=== PATIENT | male | born 1935 | race Caucasian/White ===

== ENCOUNTER → 2020-12-26 12:41 | Outpatient (CLI) | payer MEDICARE, SELFPAY ==
[2020-12-26] MEDS: COVID-19 VACC, Ad26(JANSSEN)/PF 0.5 ML IM (13:04)
== END ==
PROVIDERS: Visit Provider Internal Medicine
DX: Z23 Encounter for immunization (principal)
CPT/HCPCS: 0031A; 91303

== ENCOUNTER → 2021-07-04 10:56 | Outpatient (CLI) | payer MEDICARE, SELFPAY ==
[2021-07-04 20:06] LABS: Add Manual Diff / Slide Review NO; Basophils Absolute Auto 100 /uL (0-100); Basophils Percent Auto 1.2 % (0-2); Eosinophils Absolute Auto 200 /uL (0-450); Eosinophils Percent Auto 3.8 % (2-4); Hematocrit 43.8 % (41-53); Hemoglobin 14.4 g/dL (13.5-17.5); Lymphocytes Absolute Auto 1000 /uL (1100-4500); Lymphocytes Percent Auto 22.4 % (25-40); Mean Corpuscular HGB Conc 32.9 % (30-36); Mean Corpuscular Volume 94.1 fL (80-100); Monocytes Absolute Auto 300 /uL (0-900); Monocytes Percent Auto 7.3 % (3-14); Neutrophils Absolute Auto 3000 /uL (1500-7000); Neutrophils Percent Auto 65.3 % (50-75); Platelet Count 203 X10^3/uL (150-400); Red Blood Cell Count 4.65 X10^6/uL (4.5-5.9); Red Cell Distribution Width 13.5 % (11.6-14.8); White Blood Cell Count 4.5 X10^3/uL (4.5-11.0)
[2021-07-04 20:13] LABS: Hemoglobin A1C% w Est Avg Glu 6.1 % (4.0-6.0)
[2021-07-04 20:14] LABS: Alanine Aminotransferase 31 IU/L (<50); Albumin Globulin Ratio 1.3 (1.0-2.8); Alkaline Phosphatase 150 U/L (38-126); Aspartate Aminotransferase 45 IU/L (17-59); BUN Creatinine Ratio 22.7 (6-22); Bilirubin Total 0.4 mg/dL (0.2-1.3); Blood Urea Nitrogen 17 mg/dL (9-20); Calcium 9.5 mg/dL (8.4-10.2); Carbon Dioxide 31 mmol/L (22-32); Chloride 103 mmol/L (98-107); Cholesterol 174 mg/dL (140-199); Estimated Glomerular Filt Rate > 60.0 mL/min (>60); Globulin 3.2 g/dL (1.7-4.1); Glucose 158 mg/dL (80-110); HDL Cholesterol 67 mg/dL (40-60); HEMOLYSIS < 15 (0-50); LDL Cholesterol Calculated 93 mg/dL (<100); Potassium 4.5 mmol/L (3.4-5.1); Sodium 138 mmol/L (137-145); Total Protein 7.2 g/dL (6.3-8.2); Triglycerides 68 mg/dL (35-150)
[2021-07-04 20:45] LABS: TSH w/ Reflex to FT4 2.79 uIU/mL (0.47-4.68)
== END ==
PROVIDERS: PCP Physician Assistant Medical; Visit Provider Physician Assistant Medical
DX: R73.9 Hyperglycemia, unspecified (principal); Z12.5 Encounter for screening for malignant neoplasm of prostate; E78.5 Hyperlipidemia, unspecified; Z13.29 Encounter for screening for other suspected endocrine disorder; Z13.0 Encounter for screening for diseases of the blood and blood-forming organs and certain disorders involving the immune mechanism; Z13.228 Encounter for screening for other metabolic disorders
CPT/HCPCS: 80053; 80061; 83036; 84443; 85025; G0103

== ENCOUNTER → 2022-11-19 11:19 | Outpatient (CLI) | payer MEDICARE, SELFPAY ==
[2022-11-20 08:09] LABS: Add Manual Diff / Slide Review NO; Basophils Absolute Auto 100 /uL (0-100); Basophils Percent Auto 1.2 % (0-2); Eosinophils Absolute Auto 300 /uL (0-450); Hematocrit 44.8 % (41-53); Hemoglobin 15.2 g/dL (13.5-17.5); Hemoglobin A1C% w Est Avg Glu 6.5 % (4.0-6.0); Lymphocytes Absolute Auto 1200 /uL (1100-4500); Lymphocytes Percent Auto 23.5 % (25-40); Mean Corpuscular HGB Conc 33.9 % (30-36); Mean Corpuscular Hemoglobin 31.6 PG (26-34); Monocytes Absolute Auto 400 /uL (0-900); Monocytes Percent Auto 8.4 % (3-14); Neutrophils Absolute Auto 3200 /uL (1500-7000); Neutrophils Percent Auto 61.9 % (50-75); Platelet Count 198 X10^3/uL (150-400); Red Blood Cell Count 4.82 X10^6/uL (4.5-5.9); Red Cell Distribution Width 13.9 % (11.6-14.8); White Blood Cell Count 5.2 X10^3/uL (4.5-11.0)
[2022-11-20 08:10] LABS: Alanine Aminotransferase 34 IU/L (<50); Albumin 4.1 g/dL (3.5-5.0); Albumin Globulin Ratio 1.1 (1.0-2.8); Alkaline Phosphatase 117 U/L (38-126); Aspartate Aminotransferase 57 IU/L (17-59); Bilirubin Total 0.7 mg/dL (0.2-1.3); Blood Urea Nitrogen 18 mg/dL (9-20); Calcium 9.2 mg/dL (8.4-10.2); Carbon Dioxide 29 mmol/L (22-32); Chloride 103 mmol/L (98-107); Cholesterol 183 mg/dL (140-199); Estimated Glomerular Filt Rate > 60 mL/min (>60); Globulin 3.7 g/dL (1.7-4.1); Glucose 142 mg/dL (80-110); HDL Cholesterol 55 mg/dL (40-60); HEMOLYSIS < 15 (0-50); LDL Cholesterol Calculated 114 mg/dL (<100); Potassium 4.5 mmol/L (3.4-5.1); Sodium 140 mmol/L (137-145); Total Protein 7.8 g/dL (6.3-8.2); Triglycerides 72 mg/dL (35-150)
[2022-11-20 08:36] LABS: Prostate Specific Antigen Scrn 6.96 ng/mL (0.1-4.0); TSH w/ Reflex to FT4 2.76 uIU/mL (0.47-4.68)
== END ==
PROVIDERS: PCP Physician Assistant Medical; Visit Provider Physician Assistant Medical
DX: Z12.5 Encounter for screening for malignant neoplasm of prostate (principal); E78.5 Hyperlipidemia, unspecified; R73.9 Hyperglycemia, unspecified; E11.9 Type 2 diabetes mellitus without complications; H54.7 Unspecified visual loss; Z12.11 Encounter for screening for malignant neoplasm of colon; Z13.0 Encounter for screening for diseases of the blood and blood-forming organs and certain disorders involving the immune mechanism; Z13.228 Encounter for screening for other metabolic disorders; Z13.29 Encounter for screening for other suspected endocrine disorder
CPT/HCPCS: 80053; 80061; 83036; 84443; 85025; G0103

== ENCOUNTER → 2024-01-18 09:28 | Outpatient (CLI) | payer MEDICARE, SELFPAY ==
[2024-01-18 19:30] LABS: Add Manual Diff / Slide Review NO; Basophils Absolute Auto 100 /uL (0-100); Basophils Percent Auto 1.2 % (0-2); Eosinophils Absolute Auto 200 /uL (0-450); Eosinophils Percent Auto 2.6 % (2-4); Hematocrit 43.8 % (41-53); Hemoglobin 14.8 g/dL (13.5-17.5); Lymphocytes Absolute Auto 1500 /uL (1100-4500); Lymphocytes Percent Auto 25.5 % (25-40); Mean Corpuscular HGB Conc 33.7 % (30-36); Mean Corpuscular Hemoglobin 31.8 PG (26-34); Mean Corpuscular Volume 94.2 fL (80-100); Monocytes Absolute Auto 500 /uL (0-900); Monocytes Percent Auto 8.7 % (3-14); Neutrophils Absolute Auto 3800 /uL (1500-7000); Platelet Count 207 X10^3/uL (150-400); Red Blood Cell Count 4.65 X10^6/uL (4.5-5.9); Red Cell Distribution Width 13.8 % (11.6-14.8); White Blood Cell Count 6.1 X10^3/uL (4.5-11.0)
[2024-01-18 19:43] LABS: Alanine Aminotransferase 29 IU/L (<50); Albumin 3.8 g/dL (3.5-5.0); Albumin Globulin Ratio 1.2 (1.0-2.8); Alkaline Phosphatase 117 U/L (38-126); Aspartate Aminotransferase 40 IU/L (17-59); BUN Creatinine Ratio 26.4 (6-22); Bilirubin Total 0.5 mg/dL (0.2-1.3); Blood Urea Nitrogen 24 mg/dL (9-20); Calcium 9.7 mg/dL (8.4-10.2); Carbon Dioxide 29 mmol/L (22-32); Chloride 105 mmol/L (98-107); Cholesterol 163 mg/dL (140-199); Estimated Glomerular Filt Rate > 60 mL/min (>60); Globulin 3.3 g/dL (1.7-4.1); Glucose 156 mg/dL (80-110); HDL Cholesterol 60 mg/dL (40-60); HEMOLYSIS < 15 (0-50); LDL Cholesterol Calculated 91 mg/dL (<100); Potassium 5.3 mmol/L (3.4-5.1); Sodium 139 mmol/L (137-145); Total Protein 7.1 g/dL (6.3-8.2); Triglycerides 58 mg/dL (35-150)
[2024-01-18 20:08] LABS: Hemoglobin A1C% w Est Avg Glu 6.3 % (4.0-6.0)
[2024-01-18 20:23] LABS: Microalbumin Urine Random 4.1 mg/dL (0-1.6)
== END ==
PROVIDERS: PCP Physician Assistant Medical; Visit Provider Physician Assistant Medical
DX: E11.9 Type 2 diabetes mellitus without complications (principal)
CPT/HCPCS: 80053; 80061; 82043; 82570; 83036; 85025

== ENCOUNTER → 2025-01-18 09:55 | Outpatient (CLI) | payer MEDICARE, SELFPAY ==
[2025-01-18 19:25] LABS: Add Manual Diff / Slide Review NO; Basophils Absolute Auto 100 /uL (0-100); Basophils Percent Auto 1.6 % (0-2); Eosinophils Absolute Auto 100 /uL (0-450); Eosinophils Percent Auto 2.6 % (2-4); Hematocrit 46.1 % (41-53); Hemoglobin 15.5 g/dL (13.5-17.5); Lymphocytes Absolute Auto 1400 /uL (1100-4500); Lymphocytes Percent Auto 23.6 % (25-40); Mean Corpuscular HGB Conc 33.6 % (30-36); Mean Corpuscular Hemoglobin 31.6 PG (26-34); Mean Corpuscular Volume 93.9 fL (80-100); Monocytes Absolute Auto 500 /uL (0-900); Monocytes Percent Auto 8.3 % (3-14); Neutrophils Absolute Auto 3700 /uL (1500-7000); Neutrophils Percent Auto 63.9 % (50-75); Platelet Count 206 X10^3/uL (150-400); Red Blood Cell Count 4.91 X10^6/uL (4.5-5.9); Red Cell Distribution Width 13.7 % (11.6-14.8); White Blood Cell Count 5.8 X10^3/uL (4.5-11.0)
[2025-01-18 19:39] LABS: BUN Creatinine Ratio 24.5 (6-22); Blood Urea Nitrogen 24 mg/dL (9-20); Carbon Dioxide 28 mmol/L (22-32); Chloride 101 mmol/L (98-107); Cholesterol 175 mg/dL (140-199); Estimated Glomerular Filt Rate > 60 mL/min (>60); Glucose 164 mg/dL (80-110); HDL Cholesterol 59 mg/dL (40-60); HEMOLYSIS < 15 (0-50); Hemoglobin A1C% w Est Avg Glu 6.2 % (4.0-6.0); LDL Cholesterol Calculated 102 mg/dL (<100); Potassium 4.9 mmol/L (3.4-5.1); Sodium 138 mmol/L (137-145); Triglycerides 71 mg/dL (35-150)
[2025-01-18 20:10] LABS: Prostate Specific Antigen 9.28 ng/mL (0.10-4.00)
[2025-01-18 20:15] LABS: Creatinine Urine Random 99.78 mg/dL
[2025-01-18 20:20] LABS: Microalbumin Urine Random 6.6 mg/dL (0-1.6)
== END ==
PROVIDERS: PCP Family Medicine; Visit Provider Family Medicine
DX: E11.9 Type 2 diabetes mellitus without complications (principal); R97.20 Elevated prostate specific antigen [PSA]; E78.2 Mixed hyperlipidemia
CPT/HCPCS: 80048; 80061; 82043; 82570; 83036; 84153; 85025

== ENCOUNTER 2025-08-03 10:46 | Emergency (ER) | payer MEDICARE, SELFPAY ==
[2025-08-03] VITALS (14 sets, daily range): BP systolic 135–215; BP diastolic 80–129; PULSE 82–118; RESP 9–35; TEMP 36.2; O2SAT 65–100; BMI 24.9
--- NOTE | 2025-08-03 11:05 | EKG_ITS ---
[address] [address] Test Date: 2025-08-03 Pat Name: Gabino Trejo Department: [facility] Room: Gender: Male Instructional Supervisor: SUZAN : [id number] Requested By: Order Number: [id number] Reading MD: Jose J Parson MD Measurements Intervals [place] Rate: 92 P: W[place]: 152 QRS: 9 QRSD: 72 T: 46 QT: 370 QTc: 457 Interpretive Statements Sinus rhythm with occasional premature ventricular complexes and premature atrial complexes Electronically Signed On 08-03-2025 11:58:35 PDT by Jose J Parson MD
--- NOTE | 2025-08-03 11:05 | DI.RAD.S_ITS ---
PROCEDURE: XR CHEST 1V INDICATIONS: LIMITED MOBILITY/NOT EATING TECHNIQUE: One view of the chest was acquired. COMPARISON: None. FINDINGS: Rotated right anterior oblique. Mild bilateral perihilar and lower lobe peribronchial thickening with patchy opacities, left greater than right, more than expected for expiratory result and bronchitis, viral infection, bronchopneumonia or other process should be considered. Follow-up suggested. Borderline mildly enlarged cardiopericardial silhouette and mildly prominent sara, pulmonary vessels and/or hilar lymph nodes left greater than right. Moderate degenerative changes of the thoracic spine and shoulders. Blunting of the left costophrenic angle, left cardiac apex more likely related to prominent epicardial fat pad or pleural thickening than pleural effusion. No pneumothorax, no large pleural effusion. IMPRESSION: Peribronchial thickening and patchy opacities as discussed above. Follow-up suggested. Other findings as above. If symptoms persist or worsen, CT chest could be performed. Dictated by: Gustabo Child M.D. on 08/03/2025 at 12:13 Approved by: Gustabo Child M.D. on 08/03/2025 at 12:15
--- NOTE | 2025-08-03 12:56 | PC.NURSE ---
patient reports feeling like something has taken over his body and is now causing him weakness and decreased appetite
[2025-08-03 13:42] LABS: Add Manual Diff / Slide Review NO; Hematocrit 38.9 % (41-53); Hemoglobin 13.2 g/dL (13.5-17.5); Lymphocytes Absolute Auto 1100 /uL (1100-4500); Mean Corpuscular HGB Conc 33.8 % (30-36); Mean Corpuscular Hemoglobin 29.5 PG (26-34); Mean Corpuscular Volume 87.3 fL (80-100); Platelet Count 366 X10^3/uL (150-400)
[2025-08-03 13:56] LABS: INR 1.2 (0.9-1.3); Prothrombin Time 13.2 SECONDS (9.4-12.5)
[2025-08-03 13:58] LABS: PTT Partial Thromboplastin Tim 32 SECONDS (25.1-36.5)
[2025-08-03 14:02] LABS: Alanine Aminotransferase 40 IU/L (<50); Albumin 3.7 g/dL (3.5-5.0); Albumin Globulin Ratio 0.9 (1.0-2.8); Alkaline Phosphatase 480 U/L (38-126); Blood Urea Nitrogen 18 mg/dL (9-20); Calcium 9.5 mg/dL (8.4-10.2); Carbon Dioxide 31 mmol/L (22-32); Chloride 90 mmol/L (98-107); Creatine Kinase < 20 U/L (55-170); Estimated Glomerular Filt Rate > 60 mL/min (>60); Globulin 3.9 g/dL (1.7-4.1); Glucose 238 mg/dL (70-99); HEMOLYSIS < 15 (0-50); Lipase 81 U/L (23-300); Magnesium 2.0 mg/dL (1.6-2.3); Potassium 5.0 mmol/L (3.4-5.1); Sodium 128 mmol/L (137-145); Total Protein 7.6 g/dL (6.3-8.2)
--- NOTE | 2025-08-03 14:03 | ED.WEAKNESS ---
HPI - Weakness <Elvira Tiwari DO - Last Filed: 08/04/25 07:33> General Chief complaint: Weakness Stated complaint: limited mobility/not eating Time Seen by Provider: 08/03/25 12:46 Source: patient Mode of arrival: Family Vehicle History of Present Illness HPI Narrative: Patient is an 89-year-old male history of glaucoma, hypertension hyperlipidemia diabetes presenting today with increasing weakness and fatigue. reports that over the last month he has had pretty significant decline. She has trouble getting him to eat he does not want to 2 he has pretty fatigued. She reports it now he is afraid to walk because he might fall although he has not fallen. He has no chest pain no shortness of breath. He has had some changes in bowel habits he has been constipated, but ultimately did have a big bowel movement. He denies any sort of nausea no cough or chest pain. also reports a shuffling gait which is new Related Data Home Medications ?Medication ?Instructions ?Recorded ?Confirmed brinzolamide 1 % eye drp EYE-LEFT 07/04/21 01/24/25 drops,suspension (Azopt) travoprost 0.004 % eye drops drp EYE-LEFT 07/04/21 01/24/25 (Travatan Z) brimonidine 0.15 % eye drops 1 drp EYE-LEFT DAILY 02/07/24 01/24/25 timolol maleate 0.5 % eye drops 1 drp EYE-LEFT BID 02/07/24 01/24/25 Previous Rx's ?Medication ?Instructions ?Recorded atorvastatin 10 mg tablet 5 mg (1/2 x 10 mg) PO DAILY #90 11/24/24 tabs losartan 50 mg tablet 50 mg PO DAILY #90 tabs 01/19/25 ezetimibe 10 mg tablet (Zetia) 10 mg PO DAILY #90 tabs 01/24/25 Allergies Allergy/AdvReac Type Severity Reaction Status Date / Time No Known Drug Allergies Allergy Verified 08/03/25 11:01 Patient History <Elvira Tiwari DO - Last Filed: 08/04/25 07:33> Medical History Partial blindness (~2010) Diabetes mellitus Surgical History Anesthesia History of foot surgery (~2007) History of cataract removal with insertion of prosthetic lens Family History Father Mental health problem Mother Asthma Brother History of heart disease Social History marital status: number of children: 1 household members: spouse lives independently: Yes seatbelt use: always helmet use: Yes water heater temp set < 120 deg: Yes working smoke detector in home: Yes fire extinguisher in home: Yes carbon monox detector in home: Yes firearms in home: Yes firearms unloaded and locked: Yes do you feel safe at home: Yes Smoking Status: Never smoker alcohol intake: current substance use type: does not use during the past year weight has: remained stable well-balanced diet: daily or most days daily servings fruits/ve or more times/day caffeine: Yes eating out: rarely or never Type(s) of exercise: walking frequency: daily duration: 60-90 minutes/day Smoking Status: Never smoker Exam <Elvira Tiwari DO - Last Filed: 08/04/25 07:33> Initial Vital Signs Initial Vital Signs: Vital Signs Temperature 97.2 F L 08/03/25 11:01 Pulse Rate 82 08/03/25 11:01 Respiratory Rate 15 08/03/25 11:01 Blood Pressure 183/113 H 08/03/25 11:01 Pulse Oximetry 98 08/03/25 11:01 Oxygen Delivery Method Room Air 08/03/25 11:01 GENERAL: Alert well-appearing 89-year-old and in [no acute] distress. HEENT: Head atraumatic,EOMI, pupils reactive, face symmetric, [moist] mucous membranes CARDIOVASCULAR: Regular rate and rhythm without murmurs, rubs or gallops. RESPIRATORY: Breath sounds equal bilaterally, no wheezes rales or rhonchi. ABDOMEN: Soft, nontender. Normoactive bowel sounds all 4 quadrants. No guarding or rebound. EXTREMITIES: Normal range of motion, no clubbing or edema. Neurovascularly intact NEUROLOGICAL: Alert and oriented x4.Normal gait and speech. Cranial nerves II through XII grossly intact. Tentering Machine Off Bearer strength equal bilaterally good [id number] good leg strain SKIN: Warm, dry, no laceration, no petechiae, no rashes or lesions. <Deborah Dietrich MD - Last Filed: 08/03/25 17:00> Initial Vital Signs Initial Vital Signs: Vital Signs Temperature 97.2 F L 08/03/25 11:01 Pulse Rate 82 08/03/25 11:01 Respiratory Rate 15 08/03/25 11:01 Blood Pressure 183/113 H 08/03/25 11:01 Pulse Oximetry 98 08/03/25 11:01 Oxygen Delivery Method Room Air 08/03/25 11:01 Course <Elvira Tiwari DO - Last Filed: 08/04/25 07:33> Orders Ordered: Discontinued Medications Aspirin (Aspirin 81 Mg Chew Tab) 324 mg PO NOW ONE Stop: 08/03/25 11:06 Last Admin: 08/03/25 17:00 Dose: Not Given Documented By: SB Vital Signs Vital signs: Vital Signs - 8 hr 08/03/25 11:01 08/03/25 12:48 08/03/25 13:00 Temperature 97.2 F L Pulse Rate 82 98 H 96 H Respiratory Rate 15 24 35 H Blood Pressure 183/113 H Pulse Oximetry 98 97 97 Oxygen Delivery Method Room Air 08/03/25 13:30 08/03/25 13:51 08/03/25 13:51 Temperature Pulse Rate 94 H 110 H Respiratory Rate 33 H 24 Blood Pressure 155/119 H Pulse Oximetry 98 95 Oxygen Delivery Method 08/03/25 13:52 08/03/25 13:52 08/03/25 14:00 Temperature Pulse Rate 103 H Respiratory Rate 27 H Blood Pressure 135/96 H 166/98 H Pulse Oximetry 97 Oxygen Delivery Method 08/03/25 14:00 08/03/25 14:30 08/03/25 14:30 Temperature Pulse Rate 102 H 91 H Respiratory Rate 9 L 10 L Blood Pressure 185/96 H Pulse Oximetry 98 100 Oxygen Delivery Method 08/03/25 15:00 08/03/25 15:00 08/03/25 15:24 Temperature Pulse Rate 92 H 111 H Respiratory Rate 25 H 22 Blood Pressure 172/80 H Pulse Oximetry 97 97 Oxygen Delivery Method 08/03/25 15:24 08/03/25 15:30 08/03/25 15:30 Temperature Pulse Rate 100 H Respiratory Rate 15 Blood Pressure 177/129 H 176/95 H Pulse Oximetry 98 Oxygen Delivery Method <Deborah Dietrich MD - Last Filed: 08/03/25 17:00> Orders Ordered: Discontinued Medications Aspirin (Aspirin 81 Mg Chew Tab) 324 mg PO NOW ONE Stop: 08/03/25 11:06 Last Admin: 08/03/25 17:00 Dose: Not Given Documented By: SB Vital Signs Vital signs: Vital Signs - 8 hr 08/03/25 11:01 08/03/25 12:48 08/03/25 13:00 Temperature 97.2 F L Pulse Rate 82 98 H 96 H Respiratory Rate 15 24 35 H Blood Pressure 183/113 H Pulse Oximetry 98 97 97 Oxygen Delivery Method Room Air 08/03/25 13:30 08/03/25 13:51 08/03/25 13:51 Temperature Pulse Rate 94 H 110 H Respiratory Rate 33 H 24 Blood Pressure 155/119 H Pulse Oximetry 98 95 Oxygen Delivery Method 08/03/25 13:52 08/03/25 13:52 08/03/25 14:00 Temperature Pulse Rate 103 H Respiratory Rate 27 H Blood Pressure 135/96 H 166/98 H Pulse Oximetry 97 Oxygen Delivery Method 08/03/25 14:00 08/03/25 14:30 08/03/25 14:30 Temperature Pulse Rate 102 H 91 H Respiratory Rate 9 L 10 L Blood Pressure 185/96 H Pulse Oximetry 98 100 Oxygen Delivery Method 08/03/25 15:00 08/03/25 15:00 08/03/25 15:24 Temperature Pulse Rate 92 H 111 H Respiratory Rate 25 H 22 Blood Pressure 172/80 H Pulse Oximetry 97 97 Oxygen Delivery Method 08/03/25 15:24 08/03/25 15:30 08/03/25 15:30 Temperature Pulse Rate 100 H Respiratory Rate 15 Blood Pressure 177/129 H 176/95 H Pulse Oximetry 98 Oxygen Delivery Method MDM - Weakness <Elvira Tiwari DO - Last Filed: 08/04/25 07:33> Lab Data 08/03/25 13:30 08/03/25 13:30 Labs: Lab Results 08/03/25 08/03/25 Range/Units 13:30 13:51 WBC 11.5 H (4.5-11.0) X10^3/uL RBC 4.46 L (4.5-5.9) X10^6/uL Hgb 13.2 L (13.5-17.5) g/dL Hct 38.9 L (41-53) % MCV 87.3 (80-100) fL MCH 29.5 (26-34) PG MCHC 33.8 (30-36) % RDW 13.5 (11.6-14.8) % Plt Count 366 (150-400) X10^3/uL Neut % (Auto) 82.5 H (50-75) % Lymph % (Auto) 9.5 L (25-40) % [place] % (Auto) 7.0 (3-14) % Eos % (Auto) 0.1 L (2-4) % Baso % (Auto) 0.9 (0-2) % Neut # (Auto) 9500 H (6633-3516) /uL Lymph # (Auto) 1100 (1534-6105) /uL [place] # (Auto) 800 (0-900) /uL Eos # (Auto) 0 (0-450) /uL Baso # (Auto) 100 (0-100) /uL PT 13.2 H (9.4-12.5) SECONDS INR 1.2 (0.9-1.3) APTT 32 (25.1-36.5) SECONDS Sodium 128 L (137-145) mmol/L Potassium 5.0 (3.4-5.1) mmol/L Chloride 90 L (98-107) mmol/L Carbon Dioxide 31 (22-32) mmol/L BUN 18 (9-20) mg/dL Creatinine 0.55 L (0.66-1.25) mg/dL Estimated GFR > 60 (>60) mL/min BUN/Creatinine Ratio 32.7 H (6-22) Glucose 238 H (70-99) mg/dL Calcium 9.5 (8.4-10.2) mg/dL Magnesium 2.0 (1.6-2.3) mg/dL Total Bilirubin 1.0 (0.2-1.3) mg/dL AST 73 H (17-59) IU/L ALT 40 (<50) IU/L Alkaline Phosphatase 480 H (38-126) U/L Total Creatine Kinase < 20 L (55-170) U/L Troponin I 0.014 (0.01-0.034) ng/mL NT-Pro-B Natriuret Pep 729 H (<450) pg/mL Total Protein 7.6 (6.3-8.2) g/dL Albumin 3.7 (3.5-5.0) g/dL Globulin 3.9 (1.7-4.1) g/dL Albumin/Globulin Ratio 0.9 L (1.0-2.8) Lipase 81 (23-300) U/L Urine Color Yellow Urine Appearance Clear Urine pH 7.0 (4.5-8.0) Ur Specific [place] 1.015 (1.000-1.035) Urine Protein 1+ H (Negative) Urine Glucose (UA) Negative (Negative) g/dL Urine Ketones Negative (NEGATIVE) Urine Occult Blood Negative (Negative) Urine Nitrate Negative (Negative) Urine Bilirubin Negative (NEGATIVE) Urine Urobilinogen 1.0 (0.2) E.U./dL Ur Leukocyte Esterase Negative (NEGATIVE) Urine RBC 1-5/hpf (0-5/HPF) Urine WBC 1-5/hpf (0-5/HPF) Ur Squamous Epith Cells 1-5 /hpf (0-5/HPF) Urine Bacteria Occasional (0-1) (None) Ur Culture Indicated? Cult not indicated Vol Urine Centrifuged 10ml (spun) Urine Dip Bedside Urine Glucose Negative Bedside Urine Bilirubin - Negative Bedside Urine Ketone - Negative Urine Specific [place] 1.015 Bedside Urine Occult Blood +/- Bedside Urine pH 6.5 Bedside Urine Protein +/- 15 Bedside Urine Urobilinogen 0.2 Bedside Urine Nitrite - Negative Bedside Urine Leukocytes - Negative Esterase ECG Data Attestation: I personally reviewed and interpreted this ECG as follows: Prior ECG tracings: not available for review Interpretation: Sinus rhythm rate 92 NJ interval 152 QRS 72 QTC 457 PVC noted no ischemia priors to compare MDM Narrative Medical decision making narrative: MDM CC: Weakness Complicating co-morbidities: Hyperlipidemia hypertension Data collected from: and patient Medical records reviewed: [ ] Differential considered: [ ] Exam documented above, pertinent findings include: Alert well-appearing 89-year-old male, abdomen soft nontender breath sounds clear and equal Lab Test results independently reviewed as above. Pertinent findings: CBC WBCs 11.5 no significant anemia CMP mild hyponatremia sodium 128 potassium 5.0 creatinine 0.5 glucose 238 Troponin negative BNP 729 Independently reviewed EKG as above Sinus rhythm PVC no ischemia Imaging studies independently reviewed: Chest x-ray peribronchial thickening and patchy opacities Chest abdomen pelvis CT pending Head CT pending Consultations: [ ] Treatments: [ ] Re-evaluations: [ ] Discussion: Patient 89-year-old male presenting with 1 month of decline. Decrease in appetite some bowel habit changes shuffling gait but no falls. Blood work does show some mild hyponatremia with a sodium of 128. Abdomen is soft and nontender. Awaiting for further imaging results Patient signed out to Dr. Sanders <Deborah Dietrich MD - Last Filed: 08/03/25 17:00> Lab Data Labs: Lab Results 08/03/25 08/03/25 Range/Units 13:30 13:51 WBC 11.5 H (4.5-11.0) X10^3/uL RBC 4.46 L (4.5-5.9) X10^6/uL Hgb 13.2 L (13.5-17.5) g/dL Hct 38.9 L (41-53) % MCV 87.3 (80-100) fL MCH 29.5 (26-34) PG MCHC 33.8 (30-36) % RDW 13.5 (11.6-14.8) % Plt Count 366 (150-400) X10^3/uL Neut % (Auto) 82.5 H (50-75) % Lymph % (Auto) 9.5 L (25-40) % [place] % (Auto) 7.0 (3-14) % Eos % (Auto) 0.1 L (2-4) % Baso % (Auto) 0.9 (0-2) % Neut # (Auto) 9500 H (0237-4262) /uL Lymph # (Auto) 1100 (8118-0203) /uL [place] # (Auto) 800 (0-900) /uL Eos # (Auto) 0 (0-450) /uL Baso # (Auto) 100 (0-100) /uL PT 13.2 H (9.4-12.5) SECONDS INR 1.2 (0.9-1.3) APTT 32 (25.1-36.5) SECONDS Sodium 128 L (137-145) mmol/L Potassium 5.0 (3.4-5.1) mmol/L Chloride 90 L (98-107) mmol/L Carbon Dioxide 31 (22-32) mmol/L BUN 18 (9-20) mg/dL Creatinine 0.55 L (0.66-1.25) mg/dL Estimated GFR > 60 (>60) mL/min BUN/Creatinine Ratio 32.7 H (6-22) Glucose 238 H (70-99) mg/dL Calcium 9.5 (8.4-10.2) mg/dL Magnesium 2.0 (1.6-2.3) mg/dL Total Bilirubin 1.0 (0.2-1.3) mg/dL AST 73 H (17-59) IU/L ALT 40 (<50) IU/L Alkaline Phosphatase 480 H (38-126) U/L Total Creatine Kinase < 20 L (55-170) U/L Troponin I 0.014 (0.01-0.034) ng/mL NT-Pro-B Natriuret Pep 729 H (<450) pg/mL Total Protein 7.6 (6.3-8.2) g/dL Albumin 3.7 (3.5-5.0) g/dL Globulin 3.9 (1.7-4.1) g/dL Albumin/Globulin Ratio 0.9 L (1.0-2.8) Lipase 81 (23-300) U/L Urine Color Yellow Urine Appearance Clear Urine pH 7.0 (4.5-8.0) Ur Specific [place] 1.015 (1.000-1.035) Urine Protein 1+ H (Negative) Urine Glucose (UA) Negative (Negative) g/dL Urine Ketones Negative (NEGATIVE) Urine Occult Blood Negative (Negative) Urine Nitrate Negative (Negative) Urine Bilirubin Negative (NEGATIVE) Urine Urobilinogen 1.0 (0.2) E.U./dL Ur Leukocyte Esterase Negative (NEGATIVE) Urine RBC 1-5/hpf (0-5/HPF) Urine WBC 1-5/hpf (0-5/HPF) Ur Squamous Epith Cells 1-5 /hpf (0-5/HPF) Urine Bacteria Occasional (0-1) (None) Ur Culture Indicated? Cult not indicated Vol Urine Centrifuged 10ml (spun) Urine Dip Bedside Urine Glucose Negative Bedside Urine Bilirubin - Negative Bedside Urine Ketone - Negative Urine Specific [place] 1.015 Bedside Urine Occult Blood +/- Bedside Urine pH 6.5 Bedside Urine Protein +/- 15 Bedside Urine Urobilinogen 0.2 Bedside Urine Nitrite - Negative Bedside Urine Leukocytes - Negative Esterase Imaging Data CT chest abdomen pelvis: Radiologist Impression: PROCEDURE: CT CHEST ABD PEL W CON INDICATIONS: bowel changes and opacties on chest x ray TECHNIQUE: After the administration of intravenous contrast, 5 mm thick sections acquired from the lung apices to the symphysis. 2.5 mm thick coronal and sagittal reformats were acquired. Additional 7 mm thick coronal maximum intensity projection (MIP) reformats acquired through the lungs. Optional 10-minute delayed imaging may be performed from the kidneys to the bladder. For radiation dose reduction, the following was used: automated exposure control, adjustment of mA and/or kV according to patient size. COMPARISON: [facility], CR, XR CHEST 1V, 08/03/2025, 11:17. FINDINGS: Image quality: Diagnostic. CHEST: Lower Neck: No enlarged lymph nodes. Thyroid: No thyroid nodules which require sonographic evaluation. Axillae: No enlarged lymph nodes. Chest Wall: No subcutaneous gas. Lungs and Pleura: No pulmonary contusions or lacerations. No acute airspace opacities. No pneumothorax or hemothorax. Mediastinum: No mediastinal hematomas. Heart size is normal. No pericardial effusion. Coronary and aortic valve calcification. Thoracic aorta and pulmonary arteries demonstrate normal size and enhancement. No mediastinal or hilar adenopathy. Esophagus is normal in caliber. No hiatal hernia. ABDOMEN: Liver: Large heterogenous hypoattenuating liver mass measuring approximately 10.4 x 9.3 by 8.9 centimeter in the right lobe. Intrahepatic biliary duct dilation and additional cystic lesions or dilated bile duct of 6 in the right lobe. Gallbladder: No radiopaque gallstones or wall thickening. Biliary ducts: Common bile duct caliber normal. Pancreas: Homogenous enhancement. Spleen: Homogenous enhancement without laceration or hematoma. Adrenal Glands: Symmetric enhancement. Kidneys and Ureters: Symmetric enhancement. No hydronephrosis. No solid mass. No complex renal cystic lesion which requires follow up. Stomach and Bowel: Normal colonic caliber, without significant wall thickening. Normal appendix Peritoneum: No abnormal intraperitoneal fluid. No free air. Ventral Wall: No hernia. Abdominal Nodes: Enlarged retroperitoneal periaortic lymph nodes. Reference caval node measures 1.9 x 1.2 x 1.0 centimeter. Vessels: Aorta and inferior vena cava are normal in size. PELVIS: Pelvic Organs: Prostatomegaly. Bladder: Small bladder diverticulum. Pelvic Nodes: No enlarged lymph nodes. Miscellaneous: No inguinal hernias are seen. Bones: Pelvic ring and hip joints appear intact. No displaced rib fractures. Diffuse idiopathic skeletal hyperostosis. IMPRESSION: Possible malignancy: Very large liver mass. Possible malignancy: Abnormally enlarged retroperitoneal adenopathy. No acute abnormality. Findings were discussed with Dr. Tiwari by myself by telephone at 3:47 08/03/25 PST and acknowledged. MDM Narrative Medical decision making narrative: MDM CC: Weakness Complicating co-morbidities: Hyperlipidemia hypertension Data collected from: and patient Medical records reviewed: Primary care notes from [facility] regarding diabetes and hyperlipidemia reviewed Differential considered: Infection, neoplastic process, age-related overall decline Exam documented above, pertinent findings include: Alert well-appearing 89-year-old male, abdomen soft nontender breath sounds clear and equal Lab Test results independently reviewed as above. Pertinent findings: CBC WBCs 11.5 no significant anemia CMP mild hyponatremia sodium 128 potassium 5.0 creatinine 0.5 glucose 238 Troponin negative BNP 729 Independently reviewed EKG as above Sinus rhythm PVC no ischemia Imaging studies independently reviewed: Chest x-ray peribronchial thickening and patchy opacities Chest abdomen pelvis CT pending Head CT pending Discussion: Patient 89-year-old male presenting with 1 month of decline. Decrease in appetite some bowel habit changes shuffling gait but no falls. Blood work does show some mild hyponatremia with a sodium of 128. Abdomen is soft and nontender. Awaiting for further imaging results Patient signed out to Dr. Dietrich 4pm Dr Dietrich Care assumed, chart examined, patient is independently evaluated. Progressive weakness with nonspecific findings on initial workup including lab work. Sodium slightly low at 128. Chest x-ray has some peribronchial thickening and suggestions of patchy opacities. CT scan of the chest does not confirm any lung parenchymal abnormality CT scan of the head is unremarkable CT scan of the abdomen and pelvis shows a large liver mass 10 0.4 x 9.3 x 8.9 cm in the right lobe with intrahepatic ductal dilatation, additional cystic lesions or dilated bile duct in the right lobe. Enlarged retroperitoneal para-aortic lymph nodes were noted Long discussion with both patient and his regarding CT scan findings and concern for metastatic liver cancer. At 89 patient is very pragmatic and was not all that interested in pursuing any type of additional treatment for follow up. He and his for interested in potential hospice consult but did not feel that it was imminently necessary. They note that they do have an appointment with your primary care physician on August 07. Additional findings include hyponatremia, significant hypertension. Neither of these seem to be particularly troublesome for him currently and given the fact that he likely is going to transition to full comfort care and hospice I chose not to treat either these. He was given prescriptions in the past for hypertension but did not tolerate them and has never actually taking them. Discharge Plan Departure Patient Disposition: Home Clinical Impression: Liver mass, Weakness, Hyponatremia Hypertension Qualifiers: Hypertension type: primary hypertension Qualified Code(s): I10 - Essential (primary) hypertension Instructions: DI for Liver Cancer Activity Restrictions/Additional Instructions: Thank you for coming in today. I am glad we were able to expedite your workup and come up with an answer. Unfortunately, it is not necessarily the answer that were want. Your CT scan shows that you have large liver mass (10 0.4 x 9.3 x 8.9 cm) in the right lobe of your liver. You also have some enlarged lymph nodes lower down in your abdomen. Given your complaints of progressive weakness, loss of appetite, weight loss and the CT scan findings the most likely diagnosis is metastatic liver cancer. We can not technically make a diagnosis of cancer without a tissue sample which would mean a biopsy of the mass of your liver. We had a nice discussion regarding options. With shared decision-making we opted to make sure that you were able [place] ferry this evening, give the 2 of you a chance to think about all of the things that we talked about and on Wednesday, with your previously scheduled appointment with your primary care physician, you can continue that discussion. I appreciate your very pragmatic attitude recognizing that is something that we all experience. We discussed what a continued workup for diagnosis and treatment would look like. We also discussed what hospice and making sure that you are comfortable and at home living your life fully all the way to the end of your life may also be very reasonable choice. Please do discuss all of this with your physician on Wednesday. She will have access to all of the labs and CT scans that were done. If you do choose to go with hospice, she can help you initiate a referral. If you find that you are having pain or new findings over the weekend, please feel free to return to the ER and we are happy to help. Prescriptions: No Action atorvastatin 10 mg tablet 5 mg PO DAILY Qty: 90 0RF losartan 50 mg tablet 50 mg PO DAILY Qty: 90 1RF brinzolamide [Azopt] 1 % drops,suspension EYE-LEFT travoprost [Travatan Z] 0.004 % drops EYE-LEFT timolol maleate 0.5 % drops 1 drp EYE-LEFT BID Patient Comments: [NO ORIGINAL SIG] brimonidine 0.15 % drops 1 drp EYE-LEFT DAILY Patient Comments: [NO ORIGINAL SIG] ezetimibe [Zetia] 10 mg tablet 10 mg PO DAILY Qty: 90 3RF Referrals: Ally Quintanilla MD [Primary Care Provider, Family Practice] Stand Alone Forms: Patient Portal/API
[2025-08-03 14:13] LABS: NT-proBNP (BNP-Adult 18+) 729 pg/mL (<450); Troponin I 0.014 ng/mL (0.01-0.034)
--- NOTE | 2025-08-03 14:29 | DI.CT.S_ITS ---
PROCEDURE: CT CHEST ABD PEL W CON INDICATIONS: bowel changes and opacties on chest x ray TECHNIQUE: After the administration of intravenous contrast, 5 mm thick sections acquired from the lung apices to the symphysis. 2.5 mm thick coronal and sagittal reformats were acquired. Additional 7 mm thick coronal maximum intensity projection (MIP) reformats acquired through the lungs. Optional 10-minute delayed imaging may be performed from the kidneys to the bladder. For radiation dose reduction, the following was used: automated exposure control, adjustment of mA and/or kV according to patient size. COMPARISON: [facility], CR, XR CHEST 1V, 08/03/2025, 11:17. FINDINGS: Image quality: Diagnostic. CHEST: Lower Neck: No enlarged lymph nodes. Thyroid: No thyroid nodules which require sonographic evaluation. Axillae: No enlarged lymph nodes. Chest Wall: No subcutaneous gas. Lungs and Pleura: No pulmonary contusions or lacerations. No acute airspace opacities. No pneumothorax or hemothorax. Mediastinum: No mediastinal hematomas. Heart size is normal. No pericardial effusion. Coronary and aortic valve calcification. Thoracic aorta and pulmonary arteries demonstrate normal size and enhancement. No mediastinal or hilar adenopathy. Esophagus is normal in caliber. No hiatal hernia. ABDOMEN: Liver: Large heterogenous hypoattenuating liver mass measuring approximately 10.4 x 9.3 by 8.9 centimeter in the right lobe. Intrahepatic biliary duct dilation and additional cystic lesions or dilated bile duct of 6 in the right lobe. Gallbladder: No radiopaque gallstones or wall thickening. Biliary ducts: Common bile duct caliber normal. Pancreas: Homogenous enhancement. Spleen: Homogenous enhancement without laceration or hematoma. Adrenal Glands: Symmetric enhancement. Kidneys and Ureters: Symmetric enhancement. No hydronephrosis. No solid mass. No complex renal cystic lesion which requires follow up. Stomach and Bowel: Normal colonic caliber, without significant wall thickening. Normal appendix Peritoneum: No abnormal intraperitoneal fluid. No free air. Ventral Wall: No hernia. Abdominal Nodes: Enlarged retroperitoneal periaortic lymph nodes. Reference caval node measures 1.9 x 1.2 x 1.0 centimeter. Vessels: Aorta and inferior vena cava are normal in size. PELVIS: Pelvic Organs: Prostatomegaly. Bladder: Small bladder diverticulum. Pelvic Nodes: No enlarged lymph nodes. Miscellaneous: No inguinal hernias are seen. Bones: Pelvic ring and hip joints appear intact. No displaced rib fractures. Diffuse idiopathic skeletal hyperostosis. IMPRESSION: Possible malignancy: Very large liver mass. Possible malignancy: Abnormally enlarged retroperitoneal adenopathy. No acute abnormality. Findings were discussed with Dr. Tiwari by myself by telephone at 3:47 08/03/25 [facility] and acknowledged. Dictated by: Juan Ardon M.D. on 08/03/2025 at 15:31 Approved by: Juan Ardon M.D. on 08/03/2025 at 15:51
--- NOTE | 2025-08-03 14:29 | DI.CT.S_ITS ---
PROCEDURE: CT HEAD/BRAIN WO CON INDICATIONS: increased confusion falling TECHNIQUE: Noncontrast 4.5 mm thick angled axial sections acquired from the foramen magnum to the vertex, with coronal and sagittal reformats. For radiation dose reduction, the following was used: automated exposure control, adjustment of mA and/or kV according to patient size. COMPARISON: None. FINDINGS: Image quality: Diagnostic. CSF spaces: Basal cisterns are patent. No extra-axial fluid collections. Ventricles are normal in size and shape. Brain: No midline shift. No intracranial mass effect or hemorrhage. Metz- white matter interface is normal. Diffuse cerebral volume loss. Intracranial atherosclerotic calcifications. Skull and face: Calvarium and visualized facial bones are intact, without suspicious lesions. Sinuses: Visualized sinuses and mastoids are clear. IMPRESSION: No acute abnormality. Dictated by: Juan Ardon M.D. on 08/03/2025 at 15:27 Approved by: Juan Ardon M.D. on 08/03/2025 at 15:31
[2025-08-03 15:46] LABS: Appearance Urine UA CLEAR; Bilirubin Urine UA NEGATIVE (NEGATIVE); Color Urine UA YELLOW; Glucose Urine UA NEGATIVE (Negative); Ketones Urine UA NEGATIVE (NEGATIVE); Leukocyte Esterase Urine UA NEGATIVE (NEGATIVE); Nitrite Urine UA NEGATIVE (Negative); Occult Blood Urine UA NEGATIVE (Negative); Protein Urine UA 1+ (Negative); Specific Gravity Urine UA 1.015 (1.000-1.035); Urobilinogen Urine UA 1.0 E.U./dL (0.2); pH Urine UA 7.0 (4.5-8.0)
[2025-08-03 15:55] LABS: Culture Indicated Urine Cult Not Indicated
== END 2025-08-03 17:01 | disposition home or self-care (01) ==
PROVIDERS: Emergency Medicine; Emergency Provider Emergency Medicine; PCP Family Medicine
DX: R16.0 Hepatomegaly, not elsewhere classified (principal); I10 Essential (primary) hypertension; E87.1 Hypo-osmolality and hyponatremia; R53.1 Weakness; R53.83 Other fatigue
CPT/HCPCS: 36415; 70450; 71045; 71260; 74177; 80053; 81001; 81003; 82550; 83690; 83735; 83880; 84484; 85025; 85610; 85730; 93005; 99283; 99284